=== PATIENT | female | born 1985 | race African-American/Black ===

== ENCOUNTER 2020-04-19 14:48 | Emergency (ER) | payer MEDICAID, SELFPAY ==
[2020-04-19 14:51] VITALS: BP 137/80; PULSE 78; RESP 14; TEMP 35.6; O2SAT 99
[2020-04-19] MEDS: KETOROLAC (*BKC) 60 MG/2 ML VIAL IM (14:59)
[2020-04-19] MEDS: CYCLOBENZAPRINE HCL 10 MG TABLET PO (14:59)
[2020-04-19 15:00] VITALS: PULSE 77; RESP 35; O2SAT 97
--- NOTE | 2020-04-19 15:01 | ED.CHESTPAIN ---
HPI - Chest Pain General Chief Complaint: Chest Pain Stated Complaint: bodyaches 2 days Time Seen by Provider: 04/19/20 15:01 History of Present Illness HPI narrative: 34 yo female with no significant past medical history presents to the ED for chest pain. She has had pain in the left side of her chest below her breast since this morning. She also has pain in the right upper back adjacent to the scapula. The pain is worse with movement. No cough, congestion, fever, SOB. She has not taken anything for the pain. This is the third time she has been seen for chest pain in less than one week. Previous work-ups have been negative. She does say that this pain is different. Related Data Allergies Allergy/AdvReac Type Severity Reaction Status Date / Time No Known Allergies Allergy Verified 04/19/20 15:14 Review of Systems Review of Systems: All systems reviewed & are unremarkable except as noted in HPI and below ENT: Reports headache(s), Reports nasal congestion and Denies sore throat Cardiovascular: Cardiovascular: Reports chest pain Respiratory: Respiratory: Denies chest congestion, Denies cough and Denies dyspnea Gastrointestinal: Gastrointestinal: Denies nausea and Denies vomiting Genitourinary: Genitourinary: Denies dysuria Musculoskeletal: Musculoskeletal: Reports neck pain Neurologic: Denies dizziness, Denies numbness and Denies weakness PMF Past Medical History Medical History No pertinent past medical history Surgical History Surgical History No pertinent past surgical history Social History Social History Smoking status: Never smoker Exam Const: General: healthy appearing, no acute distress and alert Orientation/consciousness: patient oriented x3 HENMT: Head: normal to inspection Neck: Neck: normal visual inspection and no lymphadenopathy Chest: Chest palpation & inspection: no tenderness Resp: Effort & Inspection: normal respiratory effort Auscultation: clear to auscultation bilaterally, no rales, no rhonchi and no wheezes Cardio: Jugular venous distension: no JVD Rate: regular rate Rhythm: regular rhythm Heart sounds: no murmurs GI: Inspection: non-distended GI Palp: Yes Soft to palpation and No Tenderness to palpation present (GI) Back/Spine/Pelvis: Other: tenderness at the medial border of the right scapula Skin: General skin exam: normal color Neuro: General: patient oriented x3 and moves all extremities Speech: normal speech Extrem: General: normal to inspection and no edema Psych: Appearance: well kempt Affect: normal affect Course Vital Signs Vital signs: Vital Signs Temperature 35.6 C L 04/19/20 14:51 Pulse Rate 78 04/19/20 14:51 Respiratory Rate 14 04/19/20 14:51 Blood Pressure 137/80 04/19/20 14:51 Pulse Oximetry 99 04/19/20 14:51 Temperature 35.6 C L 04/19/20 14:51 Pulse Rate 88 04/19/20 15:04 Respiratory Rate 35 H 04/19/20 15:00 Blood Pressure 137/80 04/19/20 14:51 Pulse Oximetry 97 04/19/20 15:00 MDM - Chest Pain MDM Narrative Medical decision making narrative: History and exam consistent with musculoskeletal pain. She had a cardiac work-up done a few days ago. She is low risk for PE. Medical Records Data Attestation: I reviewed the patient's medical records. Lab Data Attestation: I reviewed the patient's lab results. Discharge Plan Discharge Clinical Impression: Acute chest wall pain Patient Disposition: Home, Self-Care Condition: Stable Instructions: Chest Wall Pain (ED) Prescriptions: New cyclobenzaprine 10 mg tablet 10 mg PO TID PRN (Reason: muscle spasm) Qty: 20 RF: 0 ibuprofen 600 mg tablet 600 mg PO QID PRN (Reason: pain) Qty: 30 RF: 0 Follow-up/Referrals: PHYSICIAN,EHS TEACHER [Primary Care Provider] - Krishna Mayen
[2020-04-19 15:04] VITALS: PULSE 88
--- NOTE | 2020-04-19 15:09 | PC.NURSE ---
patient brought back to ED room 3 with c/o back pain, neck pain and left sided chest pain since yesterday morning. see initial assessment. no associated symptoms. alert. oriented. no distress. EKG done.
--- NOTE | 2020-04-19 15:13 | ECG_ITS ---
Measurements Intervals [place] Rate: 74 P: 66 TX: 149 QRS: 8 QRSD: 100 T: 26 QT: 376 QTc: 419 Interpretive Statements SINUS RHYTHM LOW QRS VOLTAGE IN PRECORDIAL LEADS BORDERLINE T WAVE ABNORMALITY- ANTERIOR LEADS BASELINE ARTIFACT- I, III, AVR, AVL, AVF BORDERLINE ECG Electronically Signed On 04-19-2020 16:14:47 BASIN OPERATOR by Alfredito Bowser D.O.
== END 2020-04-19 15:45 | disposition home or self-care (01) ==
PROVIDERS: Emergency Provider Emergency Medicine
DX: R07.89 Other chest pain (principal); R94.31 Abnormal electrocardiogram [ECG] [EKG]
CPT/HCPCS: 93005; 96372; 99283; A9270; J1885

== ENCOUNTER 2020-07-22 14:45 | Emergency (ER) | payer OTHER, SELFPAY ==
--- NOTE | 2020-07-22 14:47 | ECG_ITS ---
Measurements Intervals [place] Rate: 76 P: 52 NE: 159 QRS: 5 QRSD: 94 T: 17 QT: 371 QTc: 417 Interpretive Statements SINUS RHYTHM INCOMPLETE RIGHT BUNDLE BRANCH BLOCK BORDERLINE T WAVE ABNORMALITY- ANT/INF LEADS BORDERLINE ECG Electronically Signed On 07-23-2020 10:27:19 CDT by Alfredito Bowser D.O.
[2020-07-22 15:35] VITALS: BP 133/79; PULSE 76; RESP 18; TEMP 36.1; O2SAT 100
[2020-07-22 15:53] LABS: Basophils Percent Auto 0.8 % (0.2-1.2); Eosinophils Absolute Auto 0.5 K/mm3 (0-0.3); Eosinophils Percent Auto 8.9 % (0-4.4); Hematocrit 41.5 % (37.0-47.0); Hemoglobin 13.3 g/dL (12.0-15.0); Immature Granulocyte Absolute 0.01 K/mm3 (0.00-0.031); Immature Granulocyte Percent A 0.2 % (0-0.5); Lymphocytes Absolute Auto 2.13 K/mm3 (0.9-3.2); Lymphocytes Percent Auto 41.4 % (18.3-44.2); Mean Corpuscular Hemoglobin 29.2 pg (26-34); Mean Platelet Volume 12.2 fl (7.4-10.4); Monocytes Absolute Auto 0.4 K/mm3 (0.1-0.6); Monocytes Percent Auto 7.2 % (2.6-8.5); Neutrophils Absolute Auto 2.1 K/mm3 (1.3-6.7); Neutrophils Percent Auto 41.5 % (45.5-73.1); Platelet Count Result 205 k/mm3 (150-375); Red Blood Count 4.56 M/mm3 (4.2-5.4); Red Cell Distribution Width 12.9 % (11.5-14.5); White Blood Count 5.2 K/mm3 (4.5-10.0)
[2020-07-22 16:08] LABS: Anion Gap 6 mmol/L (8-16); Blood Urea Nitrogen 14 mg/dL (7-17); Calcium 9.4 mg/dL (8.4-10.2); Carbon Dioxide 27 mmol/L (22-30); Chloride 107 mmol/L (98-107); Estimated CRCL calculation 74 ml/min; Estimated Glomerular Filt Rate > 60; Glucose 82 mg/dL (65-105); Potassium 3.9 mmol/L (3.4-5.0); Sodium 140 mmol/L (137-145)
[2020-07-22 19:14] VITALS: BP 133/76; PULSE 71; RESP 18; O2SAT 91
[2020-07-22] MEDS: MECLIZINE HCL 25 MG TABLET PO (19:59)
--- NOTE | 2020-07-22 20:15 | ED.DIZZY ---
HPI - Dizziness General Chief Complaint: Dizziness Stated Complaint: Dizzy/headache Time Seen by Provider: 07/22/20 19:14 History of Present Illness HPI Narrative: Patient is a 34-year-old female who presents ER with episodic dizziness. Ongoing over the last 2 weeks. Worse when laying back or leaning forwards. Occasionally when turning her head from side to side. She gets rotational dizziness. Occasionally she will become very nauseous with it. No fevers or chills or sweats. Denies any sinus congestion or sore throat. No ringing in her ears. Has not had symptoms like this before. Has not tried any medication for relief. Related Data Allergies Allergy/AdvReac Type Severity Reaction Status Date / Time No Known Allergies Allergy Verified 04/19/20 15:14 Review of Systems Constitutional: Constitutional: Denies chills and Denies fever(s) ENT: Reports vertigo, Reports dizziness and Denies nasal congestion Gastrointestinal: Gastrointestinal: Denies abdominal pain, Reports nausea and Denies vomiting Neurologic: Reports dizziness, Denies headache(s), Denies focal weakness and Denies numbness PMFSH Past Medical History Medical History No pertinent past medical history Surgical History Surgical History No pertinent past surgical history Social History Social History Smoking status: Never smoker Gender identity (if verbalized by the patient): Female Exam Narrative: Exam Narrative: GENERAL: Well-appearing, well-nourished, and in no acute distress. HEAD: Normocephalic, atraumatic. EYES: PERRL and EOMI. ENT: Mucous membranes moist. TMs normal bilaterally. CHEST: Clear to auscultation. No respiratory distress. HEART: Regular rate and rhythm. Normal peripheral pulses. EXTREMITIES: Normal range of motion. No edema. NEURO: Alert and oriented x3. PSYCH: Normal mood and affect. Course Course Emergency Course: Symptoms felt to be related to BPPV. Will start patient on meclizine and give first dose here. Will give ENT referral. Patient verbalized understanding of diagnosis and treatment plan. Vital Signs Vital signs: Vital Signs Temperature 97.0 F L 07/22/20 15:35 Pulse Rate 76 07/22/20 15:35 Respiratory Rate 18 07/22/20 15:35 Blood Pressure 133/79 07/22/20 15:35 Pulse Oximetry 100 07/22/20 15:35 Temperature 97.0 F L 07/22/20 15:35 Pulse Rate 71 07/22/20 19:14 Respiratory Rate 18 07/22/20 19:14 Blood Pressure 133/76 07/22/20 19:14 Pulse Oximetry 91 07/22/20 19:14 MDM - Dizziness Lab Data Result diagrams: 07/22/20 15:42 07/22/20 15:43 Labs: Lab Results 07/22/20 07/22/20 Range/Units 15:42 15:43 WBC 5.2 (4.5-10.0) K/mm3 RBC 4.56 (4.2-5.4) M/mm3 Hgb 13.3 (12.0-15.0) g/dL Hct 41.5 (37.0-47.0) % MCV 91.0 (80-100) fl MCH 29.2 (26-34) pg MCHC 32.0 (32-36) g/dl RDW 12.9 (11.5-14.5) % Plt Count 205 (150-375) k/mm3 MPV 12.2 H (7.4-10.4) fl Immature Gran % (Auto) 0.2 (0-0.5) % Neut % (Auto) 41.5 L (45.5-73.1) % Lymph % (Auto) 41.4 (18.3-44.2) % [facility] % (Auto) 7.2 (2.6-8.5) % Eos % (Auto) 8.9 H (0-4.4) % Baso % (Auto) 0.8 (0.2-1.2) % Lymph # (Auto) 2.13 (0.9-3.2) K/mm3 [facility] # (Auto) 0.4 (0.1-0.6) K/mm3 Eos # (Auto) 0.5 H (0-0.3) K/mm3 Baso # (Auto) 0.0 (0.0-0.1) K/mm3 Abs Immat Gran (auto) 0.01 (0.00-0.031) K/mm3 Absolute Neuts (auto) 2.1 (1.3-6.7) K/mm3 Absolute Nucleated RBC 0.0 (0.0-0.012) K/mm3 Nucleated RBC % 0.0 (0.0-0.2) % Sodium 140 (137-145) mmol/L Potassium 3.9 (3.4-5.0) mmol/L Chloride 107 (98-107) mmol/L Carbon Dioxide 27 (22-30) mmol/L Anion Gap 6 L (8-16) mmol/L BUN 14 (7-17) mg/dL Creatinine 1.00 (0.7-1.0) mg/dL Estim Creat Clear Calc
[2020-07-22 20:42] VITALS: BP 142/78; PULSE 80; RESP 20; O2SAT 99
== END 2020-07-22 20:43 | disposition home or self-care (01) ==
PROVIDERS: Emergency Provider Emergency Medicine
DX: H81.10 Benign paroxysmal vertigo, unspecified ear (principal); I45.10 Unspecified right bundle-branch block; R94.31 Abnormal electrocardiogram [ECG] [EKG]
CPT/HCPCS: 36415; 80048; 85025; 93005; 99283; A9270

== ENCOUNTER 2020-09-03 10:23 | Outpatient (RCR) | payer OTHER, SELFPAY ==
--- NOTE | 2020-09-03 11:43 | PTOPEVAL ---
PHYSICAL THERAPY EVALUATION AND PLAN OF CARE 09-03-20 Thank you for referring Candace Josue to [facility], for the diagnosis of dizziness, BPPV. Candace is scheduled to be seen for therapy? 1-2 x/week for 5 weeks. Treatment will start at 2x/wk and decrease to 1x/wk as she improves. Please review, sign, date and return this plan of care FRANCIE. I agree with and certify that the following plan of care is medically necessary. Referring Physician Date Attending Provider: Lito Green MD *PT Outpatient Evaluation Document 09/03/20 10:40 DOMENICO (Rec: 09/03/20 11:43 DOMENICO [id number]) Past Medical History Source of Past Medical History Recalled from Previous Visit, Confirmed with Patient/Family Respiratory History Hx Bronchitis Yes Hx Other Respiratory Disorders Yes: year round allergies/ sinus issues Musculoskeletal History Hx Back Pain Yes HEENT History Hx Sinus Problems Yes Other History Hx Other Medical Conditions Yes: has received her COVID vaccine;may have had COVID ? not tested, but fatigue,not able smell Evaluation Information Problem Diagnosis dizziness, BPPV Onset 07-15-20 Subjective Information went to ER July 22 2020 due Query Text:As Reported By Patient/ to dizziness Family Prior Level of Function Activity Level (Last 3 Months) Hand Dominance Right Medications Home Meds (Include: OTC, RX, Vitamins, albuterol; flonase- new Herbals, Dose, Route,and Frequency) script, helping some, nose is Query Text:Home Med Entries Will No not as irritated; meclizine- Longer Recall From Past Visits. Home took from ER visit, did not Meds Must Be Re-entered With Each Visit. get refilled- made too sleepy, but helped dizziness; Comments Additional Prior Level of Function gradually able to do more; Comments equilibrium is little off sometimes; cannot bend forward Pain Assessment Timing of Pain Assessment Timing of Pain Assessment Assessment Self Report Self Report Pain Level 0 Pain Score Pain Score 0: Self Report Cervical and Lumbar ROM Cervical ROM Cervical ROM Comments cervical rotation R/L and flexion/extension are WNL and no complaints pain Vestibular Evaluation Vestibular Medical Information Past Vestibular History Headaches,Infection,Sinus/ Allergy Issues Medical History Comments headaches are related to dizziness--area of pain moves from back of head, R/L uatsdin
--- NOTE | 2020-09-11 11:58 | PCPTNOTE ---
pt did not show for today's appt; called her and left her a voice mail with reminder of next appt
--- NOTE | 2020-09-13 10:25 | PCPTNOTE ---
Patient did not show up for scheduled appointment this date. Called and left a message.
--- NOTE | 2020-09-17 13:12 | PCPTNOTE ---
pt did not show for today's treatment; called her and reminded her of appt on ; she stated she would be here ;
--- NOTE | 2020-09-19 09:44 | PCPTNOTE ---
pt called and canceled today's appt due to taking child to school.
--- NOTE | 2020-09-25 13:00 | PCPTNOTE ---
pt did not show for today's appt; called and left her voice mail--cancel remaining appt due to not showing; she is to call if need additional therapy appts;
--- NOTE | 2020-11-04 09:39 | PCPTNOTE ---
PHYSICAL THERAPY DISCHARGE 11-04-20 Attending Provider: Lito Green MD Patient:Candace Josue Date of :1985 Ms. Josue has not returned for any further treatments since the PT evaluation on 09/03/2020, for the diagnosis of vestibular rehab. She did not show for 4 and called and canceled 1 appointment. Therefore she will be discharged at this time. The goals were not assessed. Thank you for referring Candace to [facility]. Please review, sign, date and return this discharge summary FRANCIE. I have been updated about the patient's current status and I agree with discharge from the above service at this time. Referring Physician Date
== END 2020-11-07 16:47 | disposition home or self-care (01) ==
LOC: ANHPT 10:23
PROVIDERS: Visit Provider Otolaryngology
DX: H81.10 Benign paroxysmal vertigo, unspecified ear (principal)
CPT/HCPCS: 97161

== ENCOUNTER 2021-07-23 15:17 | Emergency (ER) | payer OTHER, SELFPAY ==
[2021-07-23 15:24] VITALS: BP 128/79; PULSE 85; RESP 16; TEMP 37; O2SAT 100
--- NOTE | 2021-07-23 15:45 | PC.NURSE ---
pelvic exam done by Jose Olivares with rn at bedside. cultures collected.
--- NOTE | 2021-07-23 15:55 | ED.FEMALEGU ---
HPI - Female Genitourinary General Chief complaint: LIFE ADVISOR Stated complaint: yeast infection Time Seen by Provider: 07/23/21 15:40 Source: patient Mode of arrival: ambulatory Limitations: no limitations History of Present Illness HPI Narrative: 35-year-old female presents with complaint of white vaginal discharge, vaginal itching that started after using new baby wipes. That wipes were something, and she was using them for vaginal hygiene during her period. Thinks that she has a yeast infection. No concern for STIs but is okay with being checked for them. All systems reviewed and negative except as noted above. Related Data Allergies Allergy/AdvReac Type Severity Reaction Status Date / Time No Known Allergies Allergy Verified 08/07/20 09:59 Review of Systems Review of Systems: CONSTITUTIONAL: Denies fever, chills, or sweats. EYES: Denies visual changes, redness, or discharge. ENT: Denies rhinorrhea, congestion, sore throat, or otalgia. CARDIOVASCULAR: Denies chest pain, palpitations, or edema. RESPIRATORY: Denies cough or dyspnea. GASTROINTESTINAL: Denies abdominal pain, nausea, vomiting, or diarrhea. GENITOURINARY: Denies dysuria or hematuria. Reports vaginal discharge and itching. SKIN: Denies rash or itching. MUSCULOSKELETAL: Denies back pain, joint pain, or myalgia. NEUROLOGIC: Denies headache, numbness, or weakness. PSYCHIATRIC: Denies anxiety or depression. All other systems reviewed are negative, except as documented in HPI. PMFSH Past Medical History Medical History No pertinent past medical history Surgical History Surgical History No pertinent past surgical history Social History Social History Smoking status: Never smoker Alcohol intake: current Substance use: never Substance use type: does not use Gender identity (if verbalized by the patient): Female Comments At time of signature, agree with nursing past medical, surgical, social and family history. There is no relevant family history pertinent to the presenting complaint. Exam Narrative: GENERAL: This is a well-nourished, well-developed patient, in no apparent distress. HEAD: normocephalic, atraumatic. EYES: PERRL. Sclera clear/white. Vision is grossly intact. EARS: External ears normal NOSE: External nose normal THROAT: Mucous membranes moist NECK: Neck supple, non-tender without lymphadenopathy, masses or thyromegaly. CARDIOVASCULAR: Regular rate and rhythm without murmurs, gallops, or rubs. RESPIRATORY: Clear to auscultation. Breath sounds equal bilaterally. No wheezes, rales, or rhonchi. SKIN: warm, Dry, intact with no suspicious lesions or rash, good texture and turgor. NEURO: awake, alert, and oriented to person, place and time. There were no obvious focal neurologic abnormalities. EXTREMITIES: Normal range of motion all extremities. : white, clumpy discharge noted with erythema. Course Course Level of Care: Express Care Visit Vital Signs Vital signs: Vital Signs Temperature 37.0 C 07/23/21 15:24 Pulse Rate 85 07/23/21 15:24 Respiratory Rate 16 07/23/21 15:24 Blood Pressure 128/79 07/23/21 15:24 Pulse Oximetry 100 07/23/21 15:24 Temperature 37.0 C 07/23/21 15:24 Pulse Rate 85 07/23/21 15:24 Respiratory Rate 16 07/23/21 15:24 Blood Pressure 128/79 07/23/21 15:24 Pulse Oximetry 100 07/23/21 15:24 Reviewed MDM - Female Genitourinary MDM Narrative Medical decision making narrative: Patient is aware of diagnosis, understands and agrees to treatment plan. Anticipatory guidance given. Patient agrees to follow-up as directed and is aware of reasons to seek care at the emergency department. Portions of this record may have been created with voice recognition software Differential Diagnosis Differential diagnosis:
== END 2021-07-23 16:00 | disposition home or self-care (01) ==
PROVIDERS: Emergency Provider Nurse Practitioner Family; PCP Internal Medicine
DX: B37.3 Candidiasis of vulva and vagina (principal)
CPT/HCPCS: 87070; 87491; 87591; 87661; 99214; G0463

== ENCOUNTER 2022-04-15 09:40 | Emergency (ER) | payer OTHER, SELFPAY ==
[2022-04-15 10:05] VITALS: BP 137/80; PULSE 78; RESP 16; TEMP 36.7; O2SAT 100
--- NOTE | 2022-04-15 10:37 | ED.EXTPRO ---
HPI - Extremity Problem General Chief complaint: Extremity Injury, Upper Stated complaint: shoulder pain Time Seen by Provider: 04/15/22 10:20 Source: patient Mode of arrival: ambulatory Limitations: no limitations History of Present Illness HPI Narrative: Candace is a 36-year-old female patient presenting to the clinic today with complaints of right shoulder pain that has been going on for about one week. She reports that she is having pain shooting up into her neck and also numbness and tingling going down her arm. She denies any known injury. No history of carpal tunnel . 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 Patient denies any fever, chills, rash, headache, visual changes, dizziness, cough, runny nose, sore throat, shortness of breath, chest pain, palpitations, nausea, vomiting, diarrhea, constipation, abdominal pain, or any urinary issues. PMFSH Past Medical History Medical History No pertinent past medical history Surgical History Surgical History No pertinent past surgical history Social History Social History Smoking status: Never smoker Alcohol intake: current Substance use: never Substance use type: does not use Gender identity (if verbalized by the patient): Female Comments At the time of my signature, I reviewed and agree with the nursing past medical, surgical, social, and family history. There is no relevant family history pertinent to the patient complaint. Exam Narrative: General: Well-developed, well nourished, in no apparent distress Head: Normocephalic, atraumatic. Cardio: Regular rate and rhythm, s1 and s2 normal, no murmur appreciated. Resp: Clear to auscultation bilaterally, no rhonchi, rales, wheezing or rubs. Musculoskeletal: No deformity, tender to palpation over the anterior shoulder, pain with empty can of full can test over the anterior shoulder and posterior cervical musculature,grossly normal range of motion, muscle strength strong and equal, peripheral pulse strong, no edema, no cyanosis, normal gait and station Course Course Emergency Course: Portions of this record may have been created with voice recognition software. Level of Care: Express Care Visit Vital Signs Vital signs: Vital Signs Temperature 36.7 C 04/15/22 10:05 Pulse Rate 78 04/15/22 10:05 Respiratory Rate 16 04/15/22 10:05 Blood Pressure 137/80 04/15/22 10:05 Pulse Oximetry 100 04/15/22 10:05 Oxygen Delivery Room Air 04/15/22 10:05 Temperature 36.7 C 04/15/22 10:05 Pulse Rate 78 04/15/22 10:05 Respiratory Rate 16 04/15/22 10:05 Blood Pressure 137/80 04/15/22 10:05 Pulse Oximetry 100 04/15/22 10:05 Oxygen Delivery Room Air 04/15/22 10:05 Vital signs reviewed MDM - Extremity (Nontraumatic) MDM Narrative Medical decision making narrative: At the time of visit patient is resting comfortably on the exam table. I suspect the patient has right-sided cervical muscular strain / right shoulder strain. Prescription for Flexeril and prednisone was sent to pharmacy. Supportive measures were discussed with the patient she voiced understanding of discharge instructions and agrees to treatment plan. Discharge Plan Discharge Clinical Impression: Right shoulder tendinitis Strain of anterolateral cervical muscle Qualifiers: Encounter type: initial encounter Qualified Code(s): S16.1XXA - Strain of muscle, fascia and tendon at [facility]
== END 2022-04-15 10:52 | disposition home or self-care (01) ==
PROVIDERS: Emergency Provider Nurse Practitioner Family
DX: M77.8 Other enthesopathies, not elsewhere classified (principal); S16.1XXA Strain of muscle, fascia and tendon at neck level, initial encounter; X58.XXXA Exposure to other specified factors, initial encounter
CPT/HCPCS: 99213; G0463

== ENCOUNTER 2022-11-03 10:22 | Emergency (ER) | payer OTHER, SELFPAY ==
--- NOTE | ~2022-11-03 | XR_ITS ---
EXAMINATION: XR hip RT min 2V DATE: 11/03/2022 10:48 INDICATION: Right hip pain TECHNIQUE: Two views of right hip were obtained. COMPARISON: None. FINDINGS: Bone alignment is normal. There is no fracture. The soft tissues are unremarkable. IMPRESSION: 1. No acute osseous abnormality. Reviewed, dictated and finalized at location L.
--- NOTE | ~2022-11-03 | XR_ITS ---
EXAMINATION: XR knee RT min 4V DATE: 11/03/2022 10:49 INDICATION: Right knee pain TECHNIQUE: Four views of the right knee were obtained. COMPARISON: None. FINDINGS: Alignment is normal. No fracture or osteochondral lesion. Joint spaces are normal with no e rosions. No joint effusion/synovitis. Soft tissues are unremarkable. IMPRESSION: 1. No acute osseous abnormality. Reviewed, dictated and finalized at location L.
[2022-11-03 10:26] VITALS: BP 124/80; PULSE 78; RESP 16; TEMP 36.8; O2SAT 100
--- NOTE | 2022-11-03 10:30 | ED.GENADULT ---
HPI - General Adult General Chief complaint: Extremity Injury, Lower Stated complaint: Right Leg Pain Time Seen by Provider: 11/03/22 10:30 Source: patient, RN notes reviewed and old records reviewed Mode of arrival: ambulatory Limitations: no limitations History of Present Illness HPI narrative: 37-year-old female presents to the [facility] with complaints of right upper leg, hip, knee pain since WednesdayOctober 25. States that she fell landing on her leg. Denies any loss of consciousness. Denies hitting head. Was able to walk. Has taken Advil Onset (ago): day(s) (9) Treatments prior to arrival: NSAID Related Data Home Medications Medication Instructions Recorded Confirmed ergocalciferol (vitamin D2) 1,250 04/15/22 mcg (50,000 unit) capsule Allergies Allergy/AdvReac Type Severity Reaction Status Date / Time No Known Allergies Allergy Verified 11/03/22 10:31 Review of Systems Review of Systems: All systems reviewed & are unremarkable except as noted in HPI and below Constitutional: Constitutional: Reports no additional constitutional complaints Eyes: Eyes: Reports no additional eye complaints ENT: Reports system reviewed and no additional complaints, except as documented Cardiovascular: Cardiovascular: Reports no additional cardiovascular complaints, Denies chest pain and Denies dyspnea Respiratory: Respiratory: Reports no additional respiratory complaints, Denies chest congestion, Denies cough and Denies dyspnea Gastrointestinal: Gastrointestinal: Reports no additional gastrointestinal complaints, Denies abdominal pain, Denies nausea and Denies vomiting Musculoskeletal: Musculoskeletal: Reports as per HPI Integumentary/Breasts: Skin/Breast: Reports system reviewed and no additional complaints, except as docu Neurologic: Reports system reviewed and no additional complaints, except as documented Psychiatric: Psychiatric: Reports no additional psychiatric complaints Allergic/Immunologic: Allergic/Immunologic: Reports no additional allergic/immunologic complaints [facility] Past Medical History Medical History No pertinent past medical history Surgical History Surgical History No pertinent past surgical history Social History Social History Smoking status: Never smoker Alcohol intake: current Substance use: never Substance use type: does not use Gender identity (if verbalized by the patient): Female Comments At the time of my signature, I reviewed and agree with the nursing past medical, surgical, social, and family history. There is no relevant family history pertinent to the patient complaint. Exam Const: General: cooperative, healthy appearing, comfortable, no acute distress, well developed, alert and well nourished Nutritional Appearance: well nourished and obese Orientation/consciousness: patient oriented x3 Limitations: no limitations HENMT: Head: normal to inspection Ears: hearing grossly normal bilaterally and external ears normal Face/Nose/Sinus: Normal external nose present, Normal nares present, Normal nasal mucous membranes and turbinates present and normal facial exam Face and sinus: normal facial exam Eyes: General: appearance normal, both eyes and all related structures Alignment and Position: alignment normal Periorbital: periorbital findings normal Pupils: Equal, round and reactive pupils present EOM: EOMs intact bilaterally Neck: Neck: normal visual inspection, full ROM, no lymphadenopathy and no meningeal signs Chest: Chest palpation & inspection: normal inspection of the chest Resp: Effort & Inspection: normal respiratory effort and able to speak in complete sentences Auscultation: clear to auscultation bilaterally, no crackles, no rales, no rhonchi and no wheezes Cardio: Rate: regular rate Rh
[2022-11-03 10:32] VITALS: BP 124/80; PULSE 78; RESP 16; TEMP 36.8; O2SAT 100
== END 2022-11-03 11:14 | disposition home or self-care (01) ==
PROVIDERS: Emergency Provider Nurse Practitioner; PCP Family Medicine
DX: S70.11XA Contusion of right thigh, initial encounter (principal); W19.XXXA Unspecified fall, initial encounter
CPT/HCPCS: 73502; 73564; 99214; G0463

== ENCOUNTER 2024-02-03 10:21 | Emergency (ER) | payer OTHER, MEDICAID, SELFPAY ==
[2024-02-03 10:34] VITALS: BP 123/78; PULSE 85; RESP 16; TEMP 36.8; O2SAT 99
--- NOTE | 2024-02-03 10:48 | ED.URI ---
HPI - URI/Sore Throat General Chief Complaint: Upper Respiratory Infection Stated Complaint: chest congestion/breathing issue Time Seen by Provider: 02/03/24 10:50 Source: patient, RN notes reviewed and old records reviewed Mode of arrival: ambulatory Limitations: no limitations History of Present Illness HPI Narrative: 38-year-old female presents to the [facility] with complaints of cough, congestion, shortness of breath for the last 3 weeks. Has tried Benadryl and TheraFlu. Related Data Home Medications Medication Instructions Recorded Confirmed ergocalciferol (vitamin D2) 1,250 1,250 mcg DIRECTED 04/15/22 02/03/24 mcg (50,000 unit) capsule Allergies Allergy/AdvReac Type Severity Reaction Status Date / Time No Known Allergies Allergy Verified 11/03/22 10:31 Review of Systems Review of Systems: All systems reviewed & are unremarkable except as noted in HPI and below Constitutional: Constitutional: Reports no additional constitutional complaints Eyes: Eyes: Reports no additional eye complaints ENT: Reports system reviewed and no additional complaints, except as documented Cardiovascular: Cardiovascular: Reports no additional cardiovascular complaints, Denies chest pain and Denies dyspnea Respiratory: Respiratory: Reports as per HPI, Reports chest congestion, Reports cough and Reports dyspnea Gastrointestinal: Gastrointestinal: Reports no additional gastrointestinal complaints, Denies abdominal pain, Denies nausea and Denies vomiting Musculoskeletal: Musculoskeletal: Reports no additional musculoskeletal complaints Integumentary/Breasts: Skin/Breast: Reports system reviewed and no additional complaints, except as docu Neurologic: Reports system reviewed and no additional complaints, except as documented Psychiatric: Psychiatric: Reports no additional psychiatric complaints Allergic/Immunologic: Allergic/Immunologic: Reports no additional allergic/immunologic complaints [facility] Past Medical History Medical History No pertinent past medical history Surgical History Surgical History No pertinent past surgical history Social History Social History Smoking status: Never smoker Alcohol intake: current Substance use: never Substance use type: does not use Gender identity (if verbalized by the patient): Female Comments At the time of my signature, I reviewed and agree with the nursing past medical, surgical, social, and family history. There is no relevant family history pertinent to the patient complaint. Exam Const: General: cooperative, healthy appearing, comfortable, no acute distress, well developed, alert and well nourished Nutritional Appearance: well nourished Orientation/consciousness: patient oriented x3 Limitations: no limitations HENMT: Head: normal to inspection Ears: hearing grossly normal bilaterally, external ears normal, TM's normal bilaterally, EAC's normal, mastoids normal and no periauricular adenopathy Face/Nose/Sinus: Normal external nose present, normal facial exam and face symmetric Face and sinus: normal facial exam and face symmetric Mouth: Yes Normal oral and palatal mucosa present, Yes lip normal and Yes tongue normal Throat: uvula midline, postnasal drainage and no uvular edema Eyes: General: appearance normal, both eyes and all related structures Alignment and Position: alignment normal Periorbital: periorbital findings normal Neck: Neck: normal visual inspection, full ROM, no lymphadenopathy and no meningeal signs Chest: Chest palpation & inspection: normal inspection of the chest Resp: Effort & Inspection: normal respiratory effort and able to speak in complete sentences Auscultation: no crackles, no rales, no rhonchi and wheezes expiratory wheezes (RLL) Cardio: Rate: regular rate Rhythm:
== END 2024-02-03 11:12 | disposition home or self-care (01) ==
PROVIDERS: Emergency Provider Nurse Practitioner; PCP Family Medicine
DX: J40 Bronchitis, not specified as acute or chronic (principal)
CPT/HCPCS: 99213; G0463